=== PATIENT | female | born 1980 | race Caucasian/White ===

== ENCOUNTER 2017-03-06 07:51 | Emergency (ER) | payer OTHER ==
[~2017-03-06] VITALS: Ht 170.2 cm; Wt 74.8 kg
[~2017-03-06 07:51] MED LIST: PROZ20 PO; XANAX0.5 MG PO
[2017-03-06 07:57] VITALS: Ht 170.2 cm; Wt 74.8 kg
[2017-03-06 09:33] LABS: BASOPHIL % 0.3 % (0-2); PLATELET COUNT 276 x10^3mcL (130-400)
[2017-03-06 09:48] LABS: CALCIUM 9.1 mg/dL (8.5-10.1); CARBON DIOXIDE 27.3 mmol/L (21-32); CREATININE SERUM 1.4 mg/dL (0.6-1.0); POTASSIUM SERUM 3.8 mmol/L (3.5-5.1)
[2017-03-06 09:53] LABS: BILIRUBIN TOTAL 0.3 mg/dL (0.20-1.00); TOTAL PROTEIN, SERUM 7.5 g/dL (6.4-8.2)
[2017-03-06 12:02] VITALS: BP 129/80
== END 2017-03-06 12:02 | disposition home or self-care (01) ==
LOC: ED 07:51
PROVIDERS: Emergency Medicine
DX: F41.9 Anxiety disorder, unspecified (principal); Z85.820 Personal history of malignant melanoma of skin
CPT/HCPCS: J2060; J7030; Q0092

== ENCOUNTER 2017-08-21 21:01 | Emergency (ER) | payer OTHER ==
[~2017-08-21] VITALS: Ht 170.2 cm; Wt 69.4 kg
[2017-08-21 21:32] VITALS: Ht 170.2 cm; Wt 69.4 kg
[2017-08-21 23:13] LABS: CALCIUM 8.7 mg/dL (8.5-10.1); CARBON DIOXIDE 27.4 mmol/L (21-32)
[2017-08-21 23:23] LABS: ALBUMIN 3.5 g/dL (3.4-5.0); BILIRUBIN TOTAL 0.18 mg/dL (0.20-1.00); TOTAL PROTEIN, SERUM 6.5 g/dL (6.4-8.2)
[2017-08-21 23:25] LABS: CREATININE SERUM 1.6 mg/dL (0.6-1.0)
[2017-08-22 01:40] LABS: CALCIUM 8.2 mg/dL (8.5-10.1); CARBON DIOXIDE 28.1 mmol/L (21-32); POTASSIUM SERUM 3.2 mmol/L (3.5-5.1)
[2017-08-22 01:44] LABS: CREATININE SERUM 1.5 mg/dL (0.6-1.0)
[2017-08-22 03:18] VITALS: BP 99/52
== END 2017-08-22 03:18 | disposition home or self-care (01) ==
LOC: ED 21:01
PROVIDERS: Emergency Medicine
DX: E86.0 Dehydration (principal)
CPT/HCPCS: J2405; J7030

== ENCOUNTER 2017-08-25 17:11 | Emergency (ER) | payer OTHER ==
[~2017-08-25] VITALS: Ht 170.2 cm; Wt 72.6 kg
[2017-08-25 17:26] VITALS: Ht 170.2 cm; Wt 72.6 kg
[2017-08-25 18:43] LABS: BASOPHIL % 0.2 % (0-2); PLATELET COUNT 199 x10^3mcL (130-400)
[2017-08-25 18:46] LABS: CALCIUM 9.2 mg/dL (8.5-10.1); CARBON DIOXIDE 26.5 mmol/L (21-32); CREATININE SERUM 1.4 mg/dL (0.6-1.0); POTASSIUM SERUM 3.6 mmol/L (3.5-5.1); RED CELL DISTRIBUTION WIDTH 15.7 % (11.5-14.5)
[2017-08-25 18:46] LABS: UA SPECIFIC GRAVITY 1.025 (1.005-1.035); microscopic required? YES; urine erythrocyte NEGATIVE (NEGATIVE)
[2017-08-25 18:51] LABS: BILIRUBIN TOTAL 0.16 mg/dL (0.20-1.00); TOTAL PROTEIN, SERUM 6.2 g/dL (6.4-8.2)
[2017-08-25 18:53] LABS: ALBUMIN 3.3 g/dL (3.4-5.0)
[2017-08-25 20:02] VITALS: BP 119/64
== END 2017-08-25 20:02 | disposition home or self-care (01) ==
LOC: ED 17:11
PROVIDERS: Emergency Medicine
DX: R60.0 Localized edema (principal); M79.1 Myalgia; R06.02 Shortness of breath
CPT/HCPCS: 36415; 83880; Q0092

== ENCOUNTER 2017-10-22 19:19 | Emergency (ER) | payer OTHER ==
[~2017-10-22] VITALS: Ht 170.2 cm; Wt 77.1 kg
[2017-10-22 19:27] VITALS: Ht 170.2 cm; Wt 77.1 kg
[2017-10-22 21:03] VITALS: BP 127/76
== END 2017-10-22 21:03 | disposition home or self-care (01) ==
LOC: ED 19:19
DX: S61.214A Laceration without foreign body of right ring finger without damage to nail, initial encounter (principal); W26.8XXA Contact with other sharp object(s), not elsewhere classified, initial encounter; Y93.89 Activity, other specified; Y92.89 Other specified places as the place of occurrence of the external cause; Y99.8 Other external cause status
CPT/HCPCS: 90715; J2001